=== PATIENT | male | born 1990 | race Caucasian/White ===

== ENCOUNTER 2017-09-19 20:46 | Emergency (ER) | payer OTHER ==
[2017-09-19 21:15] VITALS: BP 133/83
--- NOTE | 2017-09-19 21:25 | ED GENERAL ADULT ---
History of Present Illness General Chief Complaint: Laceration Procedure Stated Complaint: LAC TO EAR Source: patient, family Exam Limitations: no limitations Vital Signs & Intake/Output Vital Signs & Intake/Output Vital Signs Date Time Temp Pulse Resp B/P B/P Pulse O2 O2 Flow FiO2 Mean Ox Delivery Rate 09/195 97.0 78 22 133/83 98 ED Intake and Output 09/20 0000 09/19 1200 Intake Total Output Total Balance Patient 210 lb Weight Allergies Coded Allergies: NO KNOWN ALLERGIES (05/09/12) Reconcile Medications No Known Home Medications Triage Note: PER PT TOOK HIT TO BACK OF RT EAR IN FOOTBALL HELMET SUSTAINING LAC AREA SWOLLEN DRIED BLOOD BEHIND EAR BASE. DENIES LOC UNKNOWN TETANUS Triage Nurses Notes Reviewed? yes HPI: This is an otherwise healthy 27-year-old male who was struck the back of his head while playing football several hours ago. The strike occurred during the first quarter of the game, and he continued to play through the rest of the game. 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 Following the game, he noticed that he had some bleeding to the right ear and right mastoid process with associated swelling. He denies any headache, dizziness, neck pain, photophobia, nausea, severe discomfort of any kind. He states that he is likely up-to-date on his tetanus given that he left college only 1 year ago and is up- to-date on his vaccines at that time. When offered a tetanus shot, he politely declines. (Aydin Nunez MD) Past History Travel History Traveled to [place] past 21 day No Medical History Any Pertinent Medical History? none Neurological: NONE EENT: NONE Cardiovascular: NONE Respiratory: NONE Gastrointestinal: NONE Hepatic: NONE Renal: NONE Musculoskeletal: NONE Psychiatric: NONE Endocrine: NONE Surgical History Surgical History: none Psychosocial History What is your primary language Estonian Tobacco Use: Never used Family History Hx Contributory? No (Aydin Nunez MD) Review of Systems Review of Systems Constitutional: Reports: no symptoms. EENTM: Reports: see HPI. Respiratory: Reports: no symptoms. Cardiovascular: Reports: no symptoms. GI: Reports: no symptoms. Genitourinary: Reports: no symptoms. Musculoskeletal: Reports: no symptoms. Skin: Reports: see HPI. Neurological/Psychological: Reports: no symptoms. Hematologic/Endocrine: Reports: no symptoms. (Aydin Nunez MD) Physical Exam Physical Exam General Appearance: well developed/nourished, no apparent distress, alert, anxious Comments: This is a well-appearing 27-year-old male, no acute distress. He has a 1 cm linear laceration to the lateral aspects of his lobule with no obvious cartilaginous involvement. There is a small avulsed piece of tissue just medially to the linear laceration. Bleeding is controlled with direct pressure. Additionally, the patient has a small linear laceration, vertical, to the right mastoid process with mild surrounding swelling. There is no mastoid tenderness or step-off. Otherwise HEENT exam is atraumatic, including no bilateral hemotympanum, gan sign, raccoon eyes, midface instability, malocclusion or other oral trauma. Extraocular muscles are intact. Trachea is midline, no clavicular tenderness or skin changes, chest wall tenderness or skin abnormality with clear lung sounds bilaterally; pelvis is stable and atraumatic. Bilateral upper and lower extremities are atraumatic and within normal limits; there is no guarding or abdominal tenderness. Patient is neurologically intact and within normal limits, oriented 4, walking the department without difficulty, reporting a good appetite Core Measures ACS in differential dx? No CVA/TIA Diagnosis: No Sepsis Present: No Sepsis Focused Exam Completed? No (Aydin Nunez MD) Progress Differential Diagnoses I considered the following diagnoses in my evaluation of the patient: Appears to be isolated laceration to right ear and right mastoid process secondary to direct strike, likely transmitted to the patient's helmet. Low suspicion for concussion or acute intracerebral hemorrhage, based on exam, history, and presentation. Low suspicion for nonaccidental trauma. Wound appears relatively clean and is cleaned extensively here in the emergency department with no obvious retained foreign body. Plan of Care: Laceration repair, reassessment Wound is cleansed excessively with normal saline, patient is anesthetized with 1 % lidocaine, vertical lacerations are repaired with 4-0 nylon, 4 stitches total. Patient tolerates the procedure well with no complications. Bacitracin applied. Wound care instructions and return precautions are provided. Patient is discharged home. Initial ED EKG: none (Aydin Nunez MD) Departure Departure Time of Disposition: 2254 Disposition: HOME OR SELF CARE Condition: Stable Clinical Impression Primary Impression: Laceration of ear Secondary Impressions: Blunt head trauma, Laceration of scalp Referrals: Will Ramesh MD (PCP/Family) Additional Instructions: Thank you for coming to the emergency department tonight. As we discussed, please be mindful of your body and aware of the symptoms of concussion which include confusion, dizziness, headache, nausea, sensitivity to light, emotional changes. Please return to the emergency department if you have any symptoms. Please do not return to playing to you feel back to 100% normal. Please follow- up with primary doctor on Thursday. In regards to the stitches, please keep the wound site clean and dry. Avoid getting the stitches wet for 24 hours. After that, use only gentle soap and did not soak the area and water. I recommend that you had stitches removed on Thursday or of this coming week. If you see any infection changes such as pus or excessive redness, please return to the emergency department for removal of the stitches. Departure Forms: Customer Survey General Discharge Information Prescriptions: Current Visit Scripts No Known Home Medications (Aydin Nunez MD) PA/HONING MACHINE OPERATOR Co-Sign Statement Statement: ED Attending supervision documentation- [] I saw and evaluated the patient. I have also reviewed all the pertinent lab results and diagnostic results. I agree with the findings and the plan of care as documented in the PA's/HONING MACHINE OPERATOR's documentation. [x] I have reviewed the ED Record and agree with the PA's/HONING MACHINE OPERATOR's documentation. [] Additions or exceptions (if any) to the PAs/HONING MACHINE OPERATOR's note and plan are summarized below: [] (Abhilash Gonzalez DO) Critical Care Note Critical Care Note Critical Care Time: non-applicable (Aydin Nunez MD)
== END 2017-09-19 23:02 ==
LOC: ERH 20:46
DX: S01.311A Laceration without foreign body of right ear, initial encounter (principal); S01.01XA Laceration without foreign body of scalp, initial encounter; S09.90XA Unspecified injury of head, initial encounter; W22.8XXA Striking against or struck by other objects, initial encounter; Y93.61 Activity, american tackle football; Y92.321 Football field as the place of occurrence of the external cause